=== PATIENT | female | born 1970 | race Caucasian/White ===

== ENCOUNTER → 2023-06-09 09:47 | Outpatient (CLI) | payer OTHER, SELFPAY ==
--- NOTE | ~2023-06-09 | MR_ITS ---
MRI of the right knee Clinical history: Pain Technique: Coronal proton density and proton density-weighted images, sagittal proton-density and T2 fat-sat images, and axial proton-density fat-saturated images were acquired. Findings: Anterior and posterior cruciate ligaments are intact. Medial collateral ligament and the la teral collateral ligament complex are intact. Popliteus tendon is intact. Medial and lateral menisci are intact, without evidence of tear. There is extensive marrow edema at the lateral femoral condyle, and at the medial patella, consistent with recent lateral patellar dislocation-relocation injury. There is probable moderate grade partial tearing at the patellar insertion of the medial patellar retinaculum. Shallow femoral trochlear groo ve noted. There is diffuse high-grade chondromalacia patella. There is high-grade chondromalacia at the lateral femoral trochlea. There is subchondral cystic change/geode formation at the lateral femoral condyle the joint line with surrounding amorphous marrow edema. There is focal subchondral cystic change at t he medial tibial plateau the joint line with surrounding amorphous marrow edema. Distal quadriceps tendon and patellar tendon are intact. There is focal prepatellar soft tissue edema or developing bursitis. No significant Alcocer's cyst. Small joint effusion present. Impression: Bone contusions at the lateral femoral condyle and medial patella are consistent with recent lateral patellar dislocation-relocation injury. Associated moderate grade partial tearing at the patellar insertion of the medial patellar retinaculu m. Moderate tricompartmental osteoarthritic change, as detailed above, worst in the patellofemoral olivia rtment. Small joint effusion. Reviewed, dictated and finalized at location . Impression: Bone contusions at the lateral femoral condyle and medial patella are consisten t with recent lateral patellar dislocation-relocation injury. Associated moderate grade partial tearing at the patellar insertion of the medi al patellar retinaculum. Moderate tricompartmental osteoarthritic change, as detailed above, worst in th e patellofemoral compartment. Small joint effusion.
== END ==
PROVIDERS: PCP Nurse Practitioner; Visit Provider Nurse Practitioner
DX: M25.461 Effusion, right knee (principal); M17.11 Unilateral primary osteoarthritis, right knee
CPT/HCPCS: 73721

== ENCOUNTER 2023-09-06 11:10 | Outpatient (CLI) | payer OTHER, SELFPAY ==
[2023-09-06 18:57] LABS: Alanine Aminotransferase 51 U/L (6-35); Albumin Level 3.9 g/dL (3.5-5.1); Alkaline Phosphatase 90 U/L (38-126); Anion Gap 6 mmol/L (8-16); Aspartate Amino Transferase 53 U/L (14-36); Bilirubin,Total 0.4 mg/dL (0.2-1.3); Blood Urea Nitrogen 13 mg/dL (7-17); Calcium 8.8 mg/dL (8.4-10.2); Carbon Dioxide 24 mmol/L (22-30); Chloride 107 mmol/L (98-107); Cholesterol 155 mg/dL (0-200); Estimated Glomerular Filt Rate > 60; Glucose 93 mg/dL (65-110); HDL Direct 54 mg/dL; Sodium 137 mmol/L (137-145); Triglycerides 75 mg/dL (<150)
[2023-09-06 19:17] LABS: LDL Cholesterol Direct 73 mg/dL
[2023-09-06 19:41] LABS: Basophils Absolute Auto 0.1 K/mm3 (0.0-0.1); Eosinophils Absolute Auto 0.1 K/mm3 (0-0.3); Eosinophils Percent Auto 1.8 % (0-4.4); Hematocrit 35.8 % (37.0-47.0); Hemoglobin 11.1 g/dL (12.0-15.0); Immature Granulocyte Absolute 0.01 K/mm3 (0.00-0.031); Immature Granulocyte Percent A 0.1 % (0-0.5); Mean Corpuscular Hemoglobin 27.6 pg (26-34); Mean Corpuscular Volume 89.1 fl (80-100); Mean Platelet Volume 10.1 fl (7.4-10.4); Monocytes Absolute Auto 0.8 K/mm3 (0.1-0.6); Monocytes Percent Auto 11.4 % (2.6-8.5); Neutrophils Absolute Auto 3.1 K/mm3 (1.3-6.7); Neutrophils Percent Auto 44.7 % (45.5-73.1); Platelet Count Result 331 k/mm3 (150-375); Red Blood Count 4.02 M/mm3 (4.2-5.4); Red Cell Distribution Width 14.3 % (11.5-14.5); White Blood Count 6.8 K/mm3 (4.5-10.0)
[2023-09-06 19:47] LABS: Vitamin D 25 Hydroxy 17.8 ng/mL
== END 2023-09-06 11:11 | disposition home or self-care (01) ==
LOC: ANHGOSHLAB 11:12
PROVIDERS: PCP Internal Medicine; Visit Provider Nurse Practitioner
DX: E55.9 Vitamin D deficiency, unspecified (principal); Z13.29 Encounter for screening for other suspected endocrine disorder; Z13.220 Encounter for screening for lipoid disorders
CPT/HCPCS: 36415; 80053; 80061; 82306; 85025

== ENCOUNTER 2023-09-09 02:11 | Day surgery (SDC) | payer OTHER, SELFPAY ==
[2023-08-30 17:07] VITALS: BMI 21.9
--- NOTE | 2023-08-30 17:16 | PC.NURSE ---
Report to the Outpatient Waiting Room, entrance under the green pavilion located off [facility], at time _0600_ on date _[id number]_. Planned Procedure Time: _0730_. Time changes happen often and if your time is changed the preop area will call you the afternoon before. - You and your visitor will be asked to self-screen and do not enter if you have any COVID symptoms. - A mask is optional within the hospital at this time. Patients may have clear liquids (water, carbonated beverages, clear teas, apple juice) until 3 hours prior to surgery with a maximum of 20 ounces. - No food from midnight until time of surgery Take the following medications with a SIP of water the morning of surgery: __None DO NOT STOP ANY OF YOUR OTHER PRESCRIPTION MEDICATIONS PRIOR TO SURGERY ?EXCEPT THE FOLLOWING Medications to discontinue per physician None Date to take last dose Please no make-up, nail monegasque, hairspray, perfume, deodorant, or body powder the day of surgery. No jewelry (including any body piercings) or valuables the day of surgery, leave them at home. Please take a shower or bath the night before, or the morning of, surgery with an antibacterial soap. Wear comfortable, loose fitting clothing. - Jewelry must be removed prior to entering the operating room. Rings and piercings that are not removed may be cut off. - The hospital will not accept responsibility for valuables. - Please leave all valuables, including medications, at home the day of surgery. If you are going home after surgery, a licensed bull driver must drive you home. - NO public transportation without another adult if you receive anesthesia. - We recommend that an adult stay with you for 24 hours following discharge. - We also recommend that you do not drive, make important decision, drink alcoholic beverages, or take any drugs that were not prescribed by your health care provider for at least 24 hours after your discharge time. Follow any additional instructions given to you from your surgeon. If you or anyone in your household have experienced Covid symptoms in the past week, please notify your surgeon or the nurse liaison at the phone number below for possible testing. Telephone instructions given to __Patient___and asked if any additional questions and then verbalized understanding. Patient advised to call surgeon office or pre surgery nurse liaison [phone] if any additional questions.
[2023-09-09] VITALS (9 sets, daily range): BP systolic 114–139; BP diastolic 61–91; PULSE 69–78; RESP 12–20; TEMP 36.7–37; O2SAT 98–100
--- NOTE | ~2023-09-09 | XR_ITS ---
EXAMINATION: XR surgery orthopedic DATE: 09/09/2023 09:47 INDICATION: Right medial patellofemoral ligament reconstruction. TECHNIQUE: A single intraoperative fluoroscopic view of right knee was obtained. I was not present. F luoroscopy exposure time was 312 seconds. COMPARISON: Right knee MRI 06/09/2023 FINDINGS: A lateral view of the knee demonstrates severe osteoarthritis of patellofemoral compartment with cortical remodeling. IMPRESSION: 1. Severe osteoarthritis of patellofemoral compartment. Reviewed, dictated and finalized at location A.
[2023-09-09] MEDS: ACETAMINOPHEN 500 MG TABLET 1000 MG PO (06:50)
[2023-09-09] MEDS: LACTATED RINGERS 1,000 ML 30 ML IV CONT ×2 (06:50→10:12)
[2023-09-09] MEDS: CELECOXIB 200 MG CAPSULE PO (06:50)
--- NOTE | 2023-09-09 06:56 | P.PNAN_ITS ---
Anes - Initial Pre Proc Eval Procedure: Operation Date: 09/09/23 07:30 Proposed Procedures p Right Knee Arthroscopy with Medial Patellofemoral Ligament Reconstruction - Dejuan Ramos MD Date/Time: 09/09/23 06:56 Surgeon: Dejuan Ramos MD Pre Op Diagnosis: rt patellar dislocation, patellar retinaculum tear Patient Data Age: 53 Gender: F Height: 1.7 m Weight: 57.9 kg Allergies Allergy/AdvReac Type Severity Reaction Status Date / Time No Known Allergies Allergy Verified 09/09/23 06:43 Home Medications Medication Instructions Recorded Confirmed Type chlorhexidine gluconate 4 % 1 applic topical DAILY #237 mL 09/01/23 09/09/23 Rx topical liquid (Hibiclens) Patient hx anesthesia problems: none Family hx anesthesia problems: none Results Review: All pre-operative results and documents have been reviewed as part of the pre- operative evaluation. [facility] Past Medical History Medical History Anxiety Arthritis Closed patellar dislocation Family hx of colon cancer History of heart attack 2018 Hospital discharge follow-up Right knee pain SOB (shortness of breath) Traumatic medial retinacular tear of knee Vision abnormalities Vitamin D deficiency Surgical History Surgical History (Updated 09/09/23 @ 06:56 by Benji Cameron MD) History of shoulder surgery Hx of tonsillectomy Family History Family History Unknown Asthma Depression Heart disease Diabetes mellitus Cerebrovascular accident Colon cancer Liver cancer Arthritis Social History Social History Smoking status: Never smoker Substance use: current Substance use type: marijuana Other substance usage details: Daily Lack of Transportation: No Lack of Food: Sometimes True Current Housing: I Have Housing Concerned About Future Housing: No Difficulty Paying Gas/Electric Bills: No Difficulty Paying for Meds: No Currently Unemployed: No Education: High School Diploma/GED Difficulty w/ Childcare or Family Care: No Living arrangements: with family Occupation/Education: occupation Additional occupation/education comments: [employer] Spiritual care concerns: No Anes - Eval Final PreProcedure Day of Procedure 09/09/23 06:56 Patient weight: normal Heart: regular rate and rhythm Lungs: clear to auscultation Airway: Mallampati scale class 1 Neurological: alert and oriented Last oral intake: >/= 8 hours ASA classification: III Emergent: no Anesthetic plan: proceed Anesthesia type and monitoring: general ETT and standard monitoring Results Review: All pre-operative results and documents have been reviewed as part of the pre-operative evaluation. Informed Consent: The patient's anesthetic plan and its attendant risks and benefits were discussed with the patient/family/POA. Questions were solicited and answers provided to the satisfaction of the patient/family/POA.
--- NOTE | 2023-09-09 07:13 | WPDHPUPDATE1 ---
History and Physical Update Update Date/Time: 09/09/23 07:13 History and Physical has been reviewed, including an updated exam of the patient. There are NO changes in the patient's condition. Risks, benefits, and alternatives have been discussed and questions answered. Patient agrees to proceed with procedure.
[2023-09-09] MEDS: ceFAZolin 2 GM/D5W 50 ML 2 GM/50 ML BAG IVPB (07:27)
[2023-09-09] MEDS: BUPivacaine HCL 0.5% 10 ML AMP 30 ML INFILTRATE (09:44)
--- NOTE | 2023-09-09 10:18 | W.PM.PROC2 ---
Procedure Note - Detailed Date of Procedure 09/09/23 Pre-op Diagnosis rt patellar dislocation with recurrent instability, patellar retinaculum tear Post-op Diagnosis Same Procedure Performed RIGHT KNEE SCOPE WITH MEDIAL PATELLO FEMORAL LIGAMENT RECONSTRUCTION Surgeon Dejuan Ramos MD Anesthesia General Description of Procedure PATIENT WAS TAKEN TO THE OR. RIGHT LEG WAS PREPPED AND DRAPED STERILE. TROCARS WERE PLACED IN THE USUAL FASHION. CAMERA WAS INTRODUCED. THERE WAS SEVERE CHONDROMALACIA AND DJD TO THE PATELLA FEMORAL JOINT. THE PATELLA WAS MANIPULATED TOWARDS THE LATERAL TROCHLEA AND GREATER THAN 50% OF THE MEDIAL FACET WAS TRANSLATED OVER THE LATERAL TROCHLEA. THERE WAS A LOT OF SYNOVITIS IN ALL COMPARTMENTS. THE MEDIAL COMPARTMENT SHOWED MILD CHONDROMALACIA TO THE MEDIAL FEMORAL CONDYLE. A SHAVER WAS USED TO PREFORM A CHONDROPLASTY. THERE WAS NO MEDIAL MENISCUS TEAR. THE ACL WAS INTACT. THE LATERAL MENISCUS WAS NOT TORN. THE LATERAL COMPARTMENT HAD MINIMAL CHONDROMALACIA AT THE LATERAL PLATEAU AND LATERAL FEMORAL CONDYLE. THE PATELLO FEMORAL JOINT UNDERWENT CHONDROPLASTY. THERE WAS GRADE 3 CHONDROMALACIA IN MOST OF THE TROCHLEA AND THE PATELLA. SYNOVECTOMY WAS PREFORMED IN THE SUPERIOR MEDIAL COMPARTMENT. NEXT AN INCISION WAS MADE OVER THE SKIN DOWN TO THE MEDIAL PATELLA RETINACULUM. THE EQUATOR OF THE PATELLA AND THE PROXIMAL UPPER HALF WERE IDENTIFIED. 2 SWIVEL LOCK GUIDE DRILLS WERE PLACED IN TO THE PATELLA. AN ALLOGRAFT TENDON WAS CONNECTED TO THE SWIVEL LOCK SCREWS AND BOTH EDGES OF THE ALLOGRAFT WERE INSERTED TO THE DRILL HOLES. THE 2 TIPS WERE BURIED IN THE BONE. 2 SWIVEL LOCK SCREWS WERE PLACED IN TO THE PATELLA SECURING THE 2 EDGES OF THE ALLOGRAFT IN TO THE PATELLA. BOTH SCREWS HAD EXCELLENT BITES. NEXT A DRILL GUIDE WAS USED TO DRILL FROM THE UPPER EDGE OF THE MEDIAL FEMORAL CONDYLE REGION TO THE LATERAL CORTEX OF THE FEMUR USING A RADIO OPAQUE DRILL GUIDE. A CANNULATED DRILL WAS THEN USED TO OVER DRILL THE GUIDE PIN REMAINING EXTRA CORTICAL TO THE LATERAL FEMORAL CORTEX. THE EDGE OF THE GRAFT WAS TUNNELED THROUGH THE EXTRA CAPSULAR REGION AND THEN INSERTED INTO THE FEMORAL TUNNEL. THE GRAFT WAS TENSIONED AND TAKEN THROUGH A RANGE OF MOTION. THE PATELLA WAS REDUCED INTO THE TROCHLEA AND WITH THE KNEE AT 30 DEG OF FLEXION AND TENSION ON THE ALLOGRAFT, A SIZE 7 INTERFERENCE SCREW WAS INSERTED FROM MEDIAL TO LATERAL AND HAD A VERY GOOD BITE. THE GRAFT WAS SECURE. THE KNEE WAS TAKEN THROUGH A RANGE OF MOTION FROM 0 TO 90 DEG AND THE GRAFT WAS STABLE. PATELLA EXCURSION TO THE LATERAL TROCHLEA WAS TO THE MID RANGE OF THE PATELLA.NEXT THE MEDIAL RETINACULUM WAS REPAIRED TO THE MEDIAL CAPSULE. THE WOUNDS WERE WASHED AND THE SUB CUTANEUS LAYER WAS APPROXIMATED WITH 3-0 QUIL. THEN DERMABOND GLUE WAS PLACED ON THE SKIN. A STERILE DRESSING WAS APPLIED. KNEE IMMOBILIZER WAS APPLIED. PATIENT WAS EXTUBATED. Estimated Blood Loss -50.0 Complications No immediate complications Condition Stable Disposition PACU
[2023-09-09] MEDS: fentaNYL CITRATE INJ (*CRX) 100 MCG/2 ML VIAL 25 MCG IV PUSH ×5 (10:28→11:35)
[2023-09-09] MEDS: oxyCODONE HCL (*CRX) 5 MG TAB IR PO (11:37)
== END 2023-09-09 12:40 | disposition home or self-care (01) ==
PROVIDERS: PCP Nurse Practitioner; Visit Provider Orthopaedic Surgery
PROC: (CPT 29870; principal; 2023-09-09 07:30)
DX: S83.004A Unspecified dislocation of right patella, initial encounter (principal); S86.811A Strain of other muscle(s) and tendon(s) at lower leg level, right leg, initial encounter; M22.41 Chondromalacia patellae, right knee; M65.861 Other synovitis and tenosynovitis, right lower leg; W10.9XXA Fall (on) (from) unspecified stairs and steps, initial encounter; I25.2 Old myocardial infarction; F12.90 Cannabis use, unspecified, uncomplicated
CPT/HCPCS: 27428; 29877; 99199; A9270; C1713; J0690; J1100; J2250; J2371; J2405; J2704; J3010; J7120; L1830

== ENCOUNTER 2025-09-24 09:07 | Outpatient (CLI) | payer OTHER, SELFPAY ==
--- OUTSIDE RECORDS SUMMARY | 2025-09-24 09:49 | XMS_ITS | Clinical Summary ---
Author Organization [facility] Address [address] [address] Phone Care Team Providers Care Bromination Equipment Operator Name Role Phone Provider, None Primary Care Provider Unavailabl e Allergies No known active allergies Medications Dextromethorpha n-Guaifenesin (ROBITUSSIN DM PO) Take 1 oz by mouth 4 times daily as needed. Active loratadine (CLARITIN) 10 MG TabletIndicatio ns:Rhinosinusit is Take 1 Tab by mouth daily. 90 Tab 3 07/06/2018 Active GA-Jbpxadpved-C cetaminophen (NIGHT TIME MS COLD/FLU RELIEF PO) Take by mouth. Active azelastine (ASTELIN) 0.1 % SolutionIndicat ions:Otitis media, acute allergic serous, bilateral 1-2 Sprays by Nasal route 2 times daily. 2sprays in each nostril BID 1 Bottle 01/29/2019 Active medroxyPROGESTE Marvel (PROVERA) 10 MG Tablet Take 1 Tab by mouth daily. 30 Tab 9 05/01/2019 Active naproxen (NAPROSYN) 500 MG Tablet Take 1 Tab by mouth 2 times daily (with meals). 40 Tab 02/05/2019 Active Active Problems Problem Noted Date Diagnosed Date Cystitis 11/10/2018 Intentional drug overdose 06/24/2017 Drug abuse, cocaine type 06/24/2017 Bipolar 1 disorder 06/24/2017 Back pain Anxiety disorder PTSD (post-traumatic stress disorder) Depression Family History Medical History Relation Name Comments Cancer Father Congestive Heart Failure Father Heart Attack Father Hypertension Father Osteoarthritis Father Diabetes Maternal Grandmother Osteoarthritis Mother Stroke Mother Asthma Sister Relation Name Status Comments Father Alive Maternal Grandmother Mother Alive Sister Social History Tobacco Use Types Packs/Day Years Used Date Smoking Tobacco: Never Smokeless Tobacco: Never Tobacco Cessation:Counseling Given: No Alcohol Use Standard Drinks/Week Comments Not Currently 1 (1 standard drink = 0.6 oz pur e alcohol) Sexually Active Control Partners Comments Yes Comments No Sex and Gender Information Value Date Recorded Sex Assigned at Not on file Legal Sex Female 1:42 PM CDT Gender Identity Not on file Sexual Orientation Not on file Last Filed Vital Signs Vital Sign Reading Time Taken Comments Blood Pressure 109/52 09/01/2024 1:54 AM CDT Pulse 92 09/01/2024 1:54 AM CDT Temperature 36.1 C (97 F) 09/01/2024 1:54 AM CDT Respiratory Rate 16 09/01/2024 1:54 AM CDT Oxygen Saturation 100% 09/01/2024 1:54 AM CDT Inhaled Oxygen Concentration - - Weight 59 kg (130 lb) 09/01/2024 1:54 AM CDT Height 170.2 cm (5' 7) 09/01/2024 1:54 AM CDT Body Mass Index 20.36 09/01/2024 1:54 AM CDT Plan of Treatment Health Maintenance Due Date Last Done Comments Hepatitis C Virus (HCV) Screening 1969 TdaP Immunization 1969 Hepatitis B Immunization (1 of 3 - 19+ 3-dose series) 1988 HPV/Cotest 1999 Cologuard 2014 Colonoscopy 2014 Colorectal Cancer Screening 2014 Immunochemical Fecal Occult Blood 2014 Mammogram 06/21/2018 06/21/2017, 03/16/2011 Pneumococcal Immunization (5 0+ years) (1 of 1 - PCV) 2019 Zoster Immunization (1 of 2) 2019 Cervical Cancer Screening (CCS) 05/17/2020 Pap Smear 05/17/2020 05/17/2017 Influenza Immunization (#1) 2025 SARS-COV-2 Immunization ( - 2023- season) 2025 Respiratory Syncytial Virus (RSV) Immunization (Adult) (1 - 1-dose 75+ series) 2044 Human Papillomavirus (HPV) Immunization Aged Out No longer eligible b ased on patient's age to complete this topic Meningococcal Immunization (ACWY) Aged Out No longer eligible b ased on patient's age to complete this topic Rotavirus Immunization Aged Out No lo nger eligible based on patient's age to complete this topic Procedures Procedure Name Priority Date/Time Associated Diagnosis Comments PADMINI SCREENING BILATERAL DIGITAL W CAD Routine 06/21/2017 2:55 PM CDT Well woman exam with routine gynecological exam PATHOLOGY CYTOLOGY CONTENT MANAGER Routine 05/17/2017 4:18 PM CDT Well woman exam with routine gynecological exam from Last 3 Months or Most Recently Relevant to Health Maintenance Results * PADMINI SCREENING BILATERAL DIGITAL W CAD (06/21/2017 2:55 PM CDT) Anatomical Region Laterality Modality breast Bilateral Mammography 06/21/2017 2:40 PM CDT Narrative 06/27/2017 3:33 PM CDT - PADMINI SCREENING BILATERAL DIGITAL W CAD BILATERAL DIGITAL SCREENING MAMMOGRAM WITH CAD WITH MEDIOLATERAL OBLIQUE CRANIOCAUDAL: 06/21/2017 The study was acquired using digital technology and interpreted from soft copy. Current study was also evaluated with ICAD version 7.2. CLINICAL: Routine screening. Patient has no complaints. No personal history of cancer. No family history of breast cancer. COMPARISONS: Comparison is made to exams dated: 03/16/2011 and 04/10/2009 [facility]. BREAST TISSUE:The tissue of both breasts is heterogeneously dense. This may lower the sensitivity of mammography. FINDINGS: There is a mole marker on the left breast. No significant masses, calcifications, or other findings are seen in either breast. There has been no significant interval change. IMPRESSION: BI-RAD 1 NEGATIVE There is no mammographic evidence of malignancy. A 1 year screening mammogram is recommended. The patient has been or will be contacted. The patient will be entered into a reminder system with a target due date of 1 year for her next screening exam. Electronically signed by: Leela glover/suleman:06/27/2017 08:46:30 Bulk Plant Agent: Lani Alvarez(Manoj), [facility] letter sent: Normal Exam Reading location: [facility] BI-RADS: 1 Negative Procedure Note Leela William MD - 06/27/2017 - PADMINI SCREENING BILATERAL DIGITAL W CAD BILATERAL DIGITAL SCREENING MAMMOGRAM WITH CAD WITH MEDIOLATERAL OBLIQUE CRANIOCAUDAL: 06/21/2017 The study was acquired using digital technology and interpreted from soft copy. Current study was also evaluated with ICAD version 7.2. CLINICAL: Routine screening. Patient has no complaints. No personal history of cancer. No family history of breast cancer. COMPARISONS: Comparison is made to exams dated: 03/16/2011 and 04/10/2009 [facility]. BREAST TISSUE:The tissue of both breasts is heterogeneously dense. This may lower the sensitivity of mammography. FINDINGS: There is a mole marker on the left breast. No significant masses, calcifications, or other findings are seen in either breast. There has been no significant interval change. IMPRESSION: BI-RAD 1 NEGATIVE There is no mammographic evidence of malignancy. A 1 year screening mammogram is recommended. The patient has been or will be contacted. The patient will be entered into a reminder system with a target due date of 1 year for her next screening exam. Electronically signed by: Leela William M.D. rb/penrad:06/27/2017 08:46:30 Bulk Plant Agent: Lani Alvarez(Manoj), [facility] letter sent: Normal Exam Reading location: [facility] BI-RADS: 1 Negative Nikita Tim MD IMG MAMMO ORDERABLES Final Result * PATHOLOGY CYTOLOGY CONTENT MANAGER (05/17/2017 4:18 PM CDT) SPECIMEN ADEQUACY Satisfactory for evaluation. Endocervical cells present. 05/23/2017 12:20 PM CDT [facility] DESCRIPTIVE DIAGNOS[facility] Negative for intraepithelial lesions. No dysplastic cells present. 05/23/2017 12:20 PM CDT [facility] at 1220 CDT AUTOMATED EXAMINATION Analysis of this sample has been assisted by an automated imaging and review system ([employer] [facility], [email or web address], [place], [place]). This case is further evaluated and finalized by a boiler service technician and/or pathologist. 05/23/2017 12:20 PM CDT [facility] DISCLAIMER The PAP smear is a screening test designed to detect cancerous or precancerous cells of the uterine cervix. It is one of the best means available for detection of cervical cancer but still carries an inherent false-negative rate. The consequences of a false-negative PAP result can be minimized by adhering to current screening guidelines. The following are general guidelines recommended by the ACS, ASCP, ASCCP, and ACOG: PAP testing is recommended every three years for women 21-29, Co-Testing, a PAP test in conjunction with an HPV (Human Papillomavirus) test for women ages 30-65, and no PAP or HPV testing for women under the age of 21 or older than 65 unless clinically indicated. 05/23/2017 12:20 PM CDT [facility] Case Report Gynecologic Cytology Report Case: [id number] Authorizing Provider: Nikita Tim MD Collected: 05/17/2017 04:18 PM Ordering Location: [facility] Received: 05/17/2017 04:18 PM GROUP - OBSTETRICS AND GYNECOLOGY [facility] First Screen: Annabella Merida Specimen: Cervical/Endocervic al, liquid based thin layer preparation (Thin Prep ), CERVIX/ENDOCERVIX 05/23/2017 12:20 PM CDT [facility] Specimen of unknown material (specimen) CERVIX UTERI STRUCTURE / Unknown 05/17/2017 4:18 PM CDT 05/17/2017 4:18 PM CDT us Nikita Tim MD PATHOLOGY/CYTOLOGY ORDERABL ES Final Result [facility] [address] [place] [address], [place] from Last 3 Months or Most Recently Relevant to Health Maintenance Insurance MEDICAID [place]ID [place] Advance Directives * Full Code (Latest Code Status on File) Date Activated Date Inactivated Comments 06/24/2017 5:01 PM 06/27/2017 6:47 PM CPR-Full Byron atment: FULL ARREST: Attempt Resuscitation/CPR wit intubation and mechanical ventilation. PRE-ARREST: Use entire range of life support measures to stabilize the patient. Care Teams Bromination Equipment Operator Relationship Specialty Start Date End Date Provider, None [place] PCP - General 05/14/21
--- OUTSIDE RECORDS SUMMARY | 2025-09-24 09:49 | XMS_ITS | Clinical Summary ---
Author Organization [facility] Address [address] [place] [address] Care Team Providers Care Marketing Reporting Analyst Name Role Phone No, Physician Primary Care Provider [phone] Allergies No known active allergies Medications traMADoL (ULTRAM) 50 mg tablet Take 1 tablet (50 mg total) by mouth every 4 (four) hours as needed for pain 20 tablet 05/12/2023 Active Active Problems No known active problems Social History Tobacco Use Types Packs/Day Years Used Date Smoking Tobacco: Never Smokeless Tobacco: Never Alcohol Use Standard Drinks/Week Comments Not Currently 0 (1 standard drink = 0.6 oz pur e alcohol) Personal Safety Answer Date Recorded Getting School Help Needed Not on file 05/15 Comments No Sex and Gender Information Value Date Recorded Sex Assigned at Not on file Legal Sex Female 12:04 PM SYSTEMS SECURITY ANALYST Gender Identity Not on file Sexual Orientation Not on file Obstetrics History Last Filed Vital Signs Vital Sign Reading Time Taken Comments Blood Pressure 121/68 05/13/2023 12:18 AM CDT Pulse 71 05/13/2023 12:18 AM CDT Temperature 36.7 C (98.1 F) 05/12/2023 10:14 PM CDT Respiratory Rate 18 05/13/2023 12:18 AM CDT Oxygen Saturation 100% 05/13/2023 12:18 AM CDT Inhaled Oxygen Concentration - - Weight 62.6 kg (138 lb) 05/12/2023 10:14 PM CDT Height 170.2 cm (5' 7) 05/12/2023 10:14 PM CDT Body Mass Index 21.61 05/12/2023 10:14 PM CDT Plan of Treatment Health Maintenance Due Date Last Done Comments Breast Cancer Screening-Mammogram 1969 Cervical Cancer Screening 1969 Colon Cancer Screening-Colonoscopy 1969 Depression Screening 1969 DTaP/Tdap/Td Vaccine (1 - Tdap) 1980 Hepatitis B Screening 1987 Regular Well Visit/Exam 18-64 1987 Zoster Vaccine (1 of 2) 2019 Influenza Vaccine (#1) 2025 Hepatitis C Screening Completed 11/28/2022 , 10/05/2015, 07/16/2009 Pneumococcal vaccine <65 Aged Out No longer eligible based on patient's age to complete this topic Insurance [facility] OTHER Address: [address] [place] [address] [facility]PPO Address: [address] [address] [place] [address] [place] [address] [employer] [facility] H[facility]/PPO Address: [id number] [place] [id number] Care Teams Marketing Reporting Analyst Relationship Specialty Start Date End Date No, Physician PCP - General 11/28/22
--- OUTSIDE RECORDS SUMMARY | 2025-09-24 09:49 | XMS_ITS ---
Author Organization [facility] Address [address] [address] Phone Care Team Providers Care Small Stock Facer Name Role Phone Provider, None Primary Care Provider Unavailabl e [facility] Status:Enrolled (Active) Start date:08/29/2024 Enrollment date:08/29/2024 Related social drivers of health:Intimate Partner Violence, Social Connections, Alcohol Use, Financial Resource Strain, Depression, Stress, Physical Activity, Food Insecurity, Transportation Needs, Housing Stability, Utilities Continued Care and Services Coordination
[2025-09-24 12:59] LABS: Hematocrit 38.1 % (37.0-47.0); Hemoglobin 11.5 g/dL (12.0-15.0); Immature Granulocyte Percent A 0.7 % (0-0.5); Lymphocytes Absolute Auto 2.24 K/mm3 (0.9-3.2); Mean Corpuscular HGB Conc 30.2 g/dl (32-36); Mean Corpuscular Hemoglobin 27.4 pg (26-34); Mean Corpuscular Volume 90.7 fl (80-100); Nucleated Red Blood Cells Absolute Auto 0.000 K/mm3 (0.0-0.012); Nucleated Red Blood Cells Perc 0.0 % (0.0-0.2); Platelet Count Result 316 k/mm3 (150-375); Red Blood Count 4.20 M/mm3 (4.2-5.4); White Blood Count 6.0 K/mm3 (4.5-10.0)
[2025-09-24 13:08] LABS: Alanine Aminotransferase 59 U/L (6-35); Albumin Level 3.9 g/dL (3.5-5.1); Alkaline Phosphatase 89 U/L (38-126); Anion Gap 7 mmol/L (4-12); Aspartate Amino Transferase 74 U/L (14-36); Bilirubin,Total 0.4 mg/dL (0.2-1.3); Blood Urea Nitrogen 14 mg/dL (7-17); Calcium 8.6 mg/dL (8.4-10.2); Carbon Dioxide 28 mmol/L (22-30); Chloride 105 mmol/L (98-107); Cholesterol 160 mg/dL (0-200); Estimated Glomerular Filt Rate > 60; Glucose 68 mg/dL (65-110); HDL Direct 59 mg/dL; Potassium 3.6 mmol/L (3.4-5.0); Sodium 140 mmol/L (137-145); Total Protein 7.6 g/dL (6.3-8.2); Triglycerides 53 mg/dL (<150)
[2025-09-24 13:39] LABS: Ferritin 5.74 ng/mL (11.1-264)
== END 2025-09-24 09:08 | disposition home or self-care (01) ==
LOC: ANHGOSHLAB 09:08
PROVIDERS: PCP Nurse Practitioner; Visit Provider Nurse Practitioner
DX: D64.9 Anemia, unspecified (principal); Z13.220 Encounter for screening for lipoid disorders; E55.9 Vitamin D deficiency, unspecified; Z13.29 Encounter for screening for other suspected endocrine disorder
CPT/HCPCS: 36415; 80053; 80061; 82728; 85025

== ENCOUNTER 2025-10-07 01:12 | Day surgery (SDC) | payer OTHER, SELFPAY ==
[2025-10-01 09:34] VITALS: BMI 21.4
--- OUTSIDE RECORDS SUMMARY | 2025-10-07 01:15 | XMS_ITS | Clinical Summary ---
Author Organization [facility] Address [address] [address] Phone Care Team Providers Care Coal Yard Supervisor Name Role Phone Provider, None Primary Care Provider Unavailabl e Allergies No known active allergies Medications Dextromethorpha n-Guaifenesin (ROBITUSSIN DM PO) Take 1 oz by mouth 4 times daily as needed. Active loratadine (CLARITIN) 10 MG TabletIndicatio ns:Rhinosinusit is Take 1 Tab by mouth daily. 90 Tab 3 07/06/2018 Active KH-Vmidxkxxlm-Z cetaminophen (NIGHT TIME MS COLD/FLU RELIEF PO) [...] Immunization (#1) 2025 SARS-COV-2 Immunization ( - 2024- season) 2025 Respiratory Syncytial Virus (RSV) Immunization [...] exam with routine gynecological exam PATHOLOGY CYTOLOGY DIAMOND BLENDER Routine 05/17/2017 4:18 PM CDT Well woman [...] made to exams dated: 03/16/2011 and 04/10/2009 [facility]. BREAST TISSUE:The tissue of both breasts [...] exam. Electronically signed by: Leela glover/suleman:06/27/2017 08:46:30 Monotype Caster: Lani Alvarez(Manoj), [facility] letter sent: Normal Exam Reading location: [facility] BI-RADS: 1 Negative Procedure Note Leela William [...] made to exams dated: 03/16/2011 and 04/10/2009 [facility]. BREAST TISSUE:The tissue of both breasts [...] signed by: Leela William M.D. rb/penrad:06/27/2017 08:46:30 Monotype Caster: Lani Alvarez(Manoj), [facility] letter sent: Normal Exam Reading location: [facility] BI-RADS: 1 Negative Nikita Tim MD IMG MAMMO ORDERABLES Final Result * PATHOLOGY CYTOLOGY DIAMOND BLENDER (05/17/2017 4:18 PM CDT) SPECIMEN ADEQUACY Satisfactory for evaluation. Endocervical cells present. 05/23/2017 12:20 PM CDT [facility] DESCRIPTIVE DIAGNOSIS Negative for intraepithelial lesions. No dysplastic cells present. 05/23/2017 12:20 PM CDT [facility] at 1220 CDT AUTOMATED EXAMINATION Analysis of this sample has been assisted by an automated imaging and review system ([employer] System, [employer], [place], [place]). This case is further evaluated and finalized by a reporting specialist and/or pathologist. 05/23/2017 12:20 PM CDT [facility] DISCLAIMER The PAP smear is a [...] unless clinically indicated. 05/23/2017 12:20 PM CDT [facility] Case Report Gynecologic Cytology Report Case: [id number] Authorizing Provider: Nikita Tim MD Collected: 05/17/2017 04:18 PM Ordering Location: [facility] MEDICAL Received: 05/17/2017 04:18 PM GROUP - OBSTETRICS AND GYNECOLOGY [facility] First Screen: Annabella Merida Specimen: Cervical/Endocervic al, liquid based thin layer preparation (Thin Prep ), CERVIX/ENDOCERVIX 05/23/2017 12:20 PM CDT [facility] Specimen of unknown material (specimen) CERVIX UTERI STRUCTURE / Unknown 05/17/2017 4:18 PM CDT 05/17/2017 4:18 PM CDT us Nikita Tim MD PATHOLOGY/CYTOLOGY ORDERABL ES Final Result [facility] [address] [place] [address], [place] from Last 3 Months or Most Recently Relevant to Health Maintenance Insurance [place] Advance Directives * Full Code (Latest Code Status on File) Date Activated Date Inactivated Comments 06/24/2017 5:01 PM 06/27/2017 6:47 PM CPR-Full [place] atment: FULL ARREST: Attempt Resuscitation/CPR wit intubation and mechanical ventilation. PRE-ARREST: Use entire range of life support measures to stabilize the patient. Care Teams Coal Yard Supervisor Relationship Specialty Start Date End Date Provider, None [place] PCP - General 05/14/21
--- OUTSIDE RECORDS SUMMARY | 2025-10-07 01:15 | XMS_ITS ---
Author Organization [facility] Address [address] [address] Phone Care Team Providers Care Market Analysis Director Name Role Phone Provider, None Primary Care Provider Unavailabl e [facility] Status:Enrolled (Active) Start date:08/29/2024 Enrollment date:08/29/2024 Related social drivers of health:Intimate Partner Violence, Social Connections, Alcohol Use, Financial Resource Strain, Depression, Stress, Physical Activity, Food Insecurity, Transportation Needs, Housing Stability, Utilities Continued Care and Services Coordination
--- OUTSIDE RECORDS SUMMARY | 2025-10-07 01:15 | XMS_ITS | Clinical Summary ---
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 CHOICE [place] [address] [facility]PA [facility] Care Teams Comptroller Relationship Specialty Start Date End Date No, Physician PCP - General 11/28/22
[2025-10-07 09:07] VITALS: BP 115/59; PULSE 76; RESP 20; TEMP 36.1; O2SAT 100; BMI 20.6
[2025-10-07] MEDS: LACTATED RINGERS 1,000 ML 150 ML IV CONT (09:16)
--- NOTE | 2025-10-07 09:16 | WPDANESEPPF ---
Anes - Initial Pre Proc Eval Procedure: Operation Date: 10/07/25 10:00 Proposed Procedures p Screening Colonoscopy - Brian Diaz MD Date/Time: 10/07/25 09:16 Surgeon: Brian Diaz MD Pre Op Diagnosis: Screening Patient Data Age: 55 Gender: F Height: 1.7 m Weight: 59.8 kg Last Vital Signs Temp 36.1 C L 10/07/25 09:07 Pulse 76 10/07/25 09:07 Resp 20 10/07/25 09:07 BP 115/59 L 10/07/25 09:07 Pulse Ox 100 10/07/25 09:07 O2 Del Method Room Air 10/07/25 09:07 Allergies Allergy/AdvReac Type Severity Reaction Status Date / Time No Known Allergies Allergy Verified 10/01/25 09:33 Home Medications ?Medication ?Instructions ?Recorded ?Confirmed ?Type alprazolam 0.5 mg tablet (Xanax) 0.5 mg PO DAILY PRN anxiety #15 09/10/25 10/01/25 Rx tabs sertraline 100 mg tablet 100 mg PO DAILY #90 tabs 09/24/25 10/07/25 Rx Patient hx anesthesia problems: none Family hx anesthesia problems: none Results Review: All pre-operative results and documents have been reviewed as part of the pre-operative evaluation. [facility] Past Medical History Medical History History of heart attack 2018 Vision abnormalities SOB (shortness of breath) Arthritis Anxiety Closed patellar dislocation Traumatic medial retinacular tear of knee Hospital discharge follow-up Right knee pain Family hx of colon cancer Vitamin D deficiency Surgical History Surgical History History of shoulder surgery Hx of tonsillectomy Family History Family History Unknown Asthma Depression Heart disease Diabetes mellitus Cerebrovascular accident Colon cancer Liver cancer Arthritis Social History Social History Smoking status: Never smoker Alcohol intake: current Substance use: current Substance use type: marijuana Other substance usage details: daily Lack of Transportation: No Lack of Food: Sometimes True Current Housing: I Have Housing Concerned About Future Housing: No Difficulty Paying Gas/Electric Bills: No Difficulty Paying for Meds: No Currently Unemployed: No Education: High School Diploma/GED Difficulty w/ Childcare or Family Care: No Living arrangements: with family Occupation/Education: occupation Additional occupation/education comments: Program Director [employer] Spiritual care concerns: No Anes - Eval Final PreProcedure Day of Procedure 10/07/25 09:16 Patient weight: normal Heart: regular rate and rhythm Lungs: clear to auscultation Airway: Mallampati scale class II Neurological: alert and oriented Last oral intake: >/= 8 hours ASA classification: III Emergent: no Anesthetic plan: proceed Anesthesia type and monitoring: general GIVS and standard monitoring Results Review: All pre-operative results and documents have been reviewed as part of the pre-operative evaluation. Informed Consent: The patient's anesthetic plan and its attendant risks and benefits were discussed with the patient/family/POA. Questions were solicited and answers provided to the satisfaction of the patient/family/POA.
--- NOTE | 2025-10-07 09:30 | PM.HPGS ---
History of Present Illness History of Present Illness Consent: Risks, benefits, and alternatives have been discussed and questions answered. Patient agrees to proceed with procedure. Chief complaint: Screening Narrative: Petra Rivera is a 55 year old female here for first screening colonoscopy, father and sister had colon cancer Review of Systems Review of Systems: All systems reviewed & are unremarkable except as noted in HPI and below PMFSH Past Medical History Medical History History of heart attack 2018 Vision abnormalities SOB (shortness of breath) Arthritis Anxiety Closed patellar dislocation Traumatic medial retinacular tear of knee Hospital discharge follow-up Right knee pain Family hx of colon cancer Vitamin D deficiency Surgical History Surgical History History of shoulder surgery Hx of tonsillectomy Family History Family History Unknown Asthma Depression Heart disease Diabetes mellitus Cerebrovascular accident Colon cancer Liver cancer Arthritis Social History Social History Smoking status: Never smoker Alcohol intake: current Substance use: current Substance use type: marijuana Other substance usage details: daily Lack of Transportation: No Lack of Food: Sometimes True Current Housing: I Have Housing Concerned About Future Housing: No Difficulty Paying Gas/Electric Bills: No Difficulty Paying for Meds: No Currently Unemployed: No Education: High School Diploma/GED Difficulty w/ Childcare or Family Care: No Living arrangements: with family Occupation/Education: occupation Additional occupation/education comments: [employer] care concerns: No Meds Home Medications and Allergies Home Medications ?Medication ?Instructions ?Recorded ?Confirmed ?Type alprazolam 0.5 mg tablet (Xanax) 0.5 mg PO DAILY PRN anxiety #15 09/10/25 10/01/25 Rx tabs sertraline 100 mg tablet 100 mg PO DAILY #90 tabs 09/24/25 10/07/25 Rx Allergies Allergy/AdvReac Type Severity Reaction Status Date / Time No Known Allergies Allergy Verified 10/01/25 09:33 Vital Signs Vital Signs - 24 hr 10/07/25 09:07 Temperature 97 F L Pulse Rate 76 Respiratory Rate 20 Blood Pressure 115/59 L Pulse Oximetry 100 Oxygen Delivery Room Air Exam Const: General: comfortable and no acute distress HENMT: Face/Nose/Sinus: Normal nares present Eyes: General: appearance normal, both eyes and all related structures Neck: Neck: no JVD Resp: Auscultation: clear to auscultation bilaterally Cardio: Rate: regular rate Rhythm: regular rhythm GI: Inspection: non-distended GI Palp: Yes Soft to palpation Skin: General skin exam: normal color Extrem: General: normal to inspection Psych: Mental Status: mental status grossly normal Assessment and Plan Assessment and plan (1) Screening for colon cancer: Code(s): Z12.11 - Encounter for screening for malignant neoplasm of colon Status: Acute (2) Family hx of colon cancer: Code(s): Z80.0 - Family history of malignant neoplasm of digestive organs Status: Acute Assessment and Plan: colonoscopy
[2025-10-07 09:47] VITALS: BP 109/64; PULSE 74; RESP 14; O2SAT 99
[2025-10-07 09:57] VITALS: BP 104/76; PULSE 78; RESP 16; O2SAT 100
[2025-10-07 10:07] VITALS: BP 107/73; PULSE 67; RESP 16; O2SAT 100
== END 2025-10-07 10:16 | disposition home or self-care (01) ==
PROVIDERS: PCP Nurse Practitioner; Referring Provider Nurse Practitioner; Visit Provider Internal Medicine Gastroenterology
PROC: 0DJD8ZZ Inspection of Lower Intestinal Tract, Via Natural or Artificial Opening Endoscopic (ICD-10-PCS; CPT 45378; principal; 2025-10-07 10:00)
DX: Z12.11 Encounter for screening for malignant neoplasm of colon (principal); K64.8 Other hemorrhoids; I25.2 Old myocardial infarction; M19.90 Unspecified osteoarthritis, unspecified site; F41.9 Anxiety disorder, unspecified; E55.9 Vitamin D deficiency, unspecified; F12.90 Cannabis use, unspecified, uncomplicated; Z98.890 Other specified postprocedural states; Z80.0 Family history of malignant neoplasm of digestive organs; Z82.49 Family history of ischemic heart disease and other diseases of the circulatory system
CPT/HCPCS: 45378; J2704; J7120